=== PATIENT | male | born 2005 | race Caucasian/White ===

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

== ENCOUNTER 2025-10-08 14:47 | Emergency (ER) | payer OTHER, MEDICAID ==
[~2025-10-08] VITALS: Ht 170.2 cm; Wt 93.0 kg
[2025-10-08 15:01] VITALS: O2SAT 99
[2025-10-08 15:13] VITALS: TEMP 36.7; O2SAT 100
[2025-10-08 16:13] VITALS: BP 114/70; PULSE 59; RESP 18; TEMP 98
[2025-10-08] MEDS: ACETAMINOPHEN 325MG TABLET PO ONE (16:13)
[2025-10-08] MEDS: IBUPROFEN 800MG TABLET PO ONE (16:13)
[2025-10-08] MEDS ORDERED: TOPUD MT (20:02)
[2025-10-08] MEDS ORDERED: IBUP-1525 MT (20:02)
== END 2025-10-08 20:14 | disposition left against medical advice (07) ==
LOC: ER 14:47
DX: S50.01XA Contusion of right elbow, initial encounter (principal); S40.011A Contusion of right shoulder, initial encounter; M25.511 Pain in right shoulder; E11.9 Type 2 diabetes mellitus without complications; V49.9XXA Car occupant (driver) (passenger) injured in unspecified traffic accident, initial encounter; Y92.410 Unspecified street and highway as the place of occurrence of the external cause; Y93.89 Activity, other specified; Y99.8 Other external cause status
CPT/HCPCS: 71045; 73030; 73080; 99284